=== PATIENT | female | born 1960 | race Caucasian/White ===

== ENCOUNTER → 2017-09-09 | Outpatient (CLI) | payer MEDICAID | LOC: BRMIMAGING 11:57 | PROVIDERS: ATTEND Registered Nurse | DX: Z12.31 Encounter for screening mammogram for malignant neoplasm of breast (principal) ==

== ENCOUNTER → 2017-11-22 | Outpatient (CLI) | payer MEDICAID | LOC: BRMIMAGING 09:34 | PROVIDERS: ATTEND Registered Nurse | DX: Z03.89 Encounter for observation for other suspected diseases and conditions ruled out (principal) | CPT/HCPCS: 76641-PO ==

== ENCOUNTER → 2018-07-07 | Outpatient (CLI) | payer OTHER, MEDICAID | LOC: BRMIMAGING 08:35 | PROVIDERS: ATTEND Family Medicine | DX: R92.8 Other abnormal and inconclusive findings on diagnostic imaging of breast (principal) ==